=== PATIENT | male | born 1970 | race Asian ===

== ENCOUNTER 2016-06-19 19:14 | Emergency (ER) | payer OTHER ==
[~2016-06-19] VITALS: Ht 167.6 cm; Wt 90.9 kg
[~2016-06-19 19:14] MED LIST: LISI-622 PO
[2016-06-19] MEDS ORDERED: LOSA25TA21 PO (19:37)
[2016-06-19] MEDS ORDERED: CloNIDine HCL 0.1 MG TABLET PO ONE (19:45)
[2016-06-19] MEDS ORDERED: KETOROLAC TROMETHAMINE 60 MG/2 ML VIAL IM ONE (19:45)
[2016-06-19 21:26] VITALS: BP 154/104
== END 2016-06-19 21:43 | disposition home or self-care (01) ==
LOC: EMS 19:15
DX: I10 Essential (primary) hypertension (principal); R07.89 Other chest pain; F17.210 Nicotine dependence, cigarettes, uncomplicated
CPT/HCPCS: 71101; 93005; 96372; 99284; J1885

== ENCOUNTER → 2017-08-24 | Outpatient (CLI) | payer OTHER ==
[~2017-08-24] MED LIST changes: -LISI-622 PO; +LOSA25TA21 PO
== END | disposition home or self-care (01) ==
LOC: EMPHLTH 11:29
PROVIDERS: ATTEND Internal Medicine
DX: Z02.1 Encounter for pre-employment examination (principal)
CPT/HCPCS: 86706; 86735; 86762; 86765; 86787